=== PATIENT | male | born 1995 | race Caucasian/White ===

== ENCOUNTER 2019-09-19 14:26 | Emergency (ER) | payer OTHER ==
--- NOTE | 2019-09-19 14:46 | EDM.PDOC ---
ED HPI GENERAL MEDICAL PROBLEM - General Chief Complaint: Upper Extremity Injury/Pain Stated Complaint: R THUMB INJURY Time Seen by Provider: 09/19/19 14:34 Source of Information: Reports: Patient, Family History Limitations: Reports: No Limitations - History of Present Illness INITIAL COMMENTS - FREE TEXT/NARRATIVE: patient was making a tackle during a football game just prior to arrival and injured his right thumb. He has pain at the base of the MCP joint area. No numbness or tingling. No gross deformity noted. He was seen by the security trainer and thought that he was better to be evaluated in the department. Patient otherwise has been healthy no other concerns or complaints. Onset: Today, Sudden Duration: Hour(s): Location: Reports: Upper Extremity, Right Quality: Reports: Ache Severity: Moderate Improves with: Reports: Cold Therapy Worsens with: Reports: None Context: Reports: Trauma Associated Symptoms: Reports: No Other Symptoms Right Finger-Thumb Pain Score (Numeric/FACES): 4 - Related Data Allergies Allergy/AdvReac Type Severity Reaction Status Date / Time No Known Allergies Allergy Verified 09/19/19 14:33 [facility] Home Meds: Home Meds . [No Known Home Meds] 09/19/19 [History] Past Medical History - Past Health History Medical/Surgical History: Denies Medical/Surgical History Social & Family History - Tobacco Use Smoking Status *Q: Never Smoker - Recreational Drug Use Recreational Drug Use: No Review of Systems - Review of Systems Review Of Systems: See Below Constitutional: Reports: No Symptoms Musculoskeletal: Reports: Joint Pain (right thumb is examined there is some mild swelling at the MCP of the thumb. I am from the snuffbox pain. There is some laxity of the ulnar collateral ligament with an end point however. Distal cap refill and sensation are normal. Other fingers and hand examination is unremarkable. Wrist exam is negative for radial or ulnar pain.) Skin: Denies: Bruising Neurological: Reports: No Symptoms. Denies: Numbness, Paresthesia, Tingling ED EXAM, GENERAL - Physical Exam Exam: See Below Exam Limited By: No Limitations General Appearance: Alert, WD/WN Peripheral Pulses: 3+: Radial (R) Extremities: Joint Swelling Neurological: Alert, Oriented Psychiatric: Normal Affect Skin Exam: Warm, Dry (right thumb is examined and shows distal cap refill intact , tenderness is noted to the MCP of the thumb, some mild laxity of the ulnar collateral ligament. This tender along the collaterals of the MCP joint of the thumb. No gross deformity. No anatomical snuffbox pain. No wrist pain. Distal cap refill and sensation are normal) Course - Vital Signs Text/Narrative:: examination, x-rays rule out fracture, ulnar collateral load gamekeeper's thumb , dislocation. Last Recorded V/S: Last Vital Signs Temp 97.9 F 09/19/19 14:33 [facility] Pulse 72 09/19/19 14:33 [facility] Resp 15 09/19/19 14:33 [facility] BP 129/85 09/19/19 14:33 [facility] Pulse Ox 98 09/19/19 14:33 MST - Orders/Labs/Meds Orders: Active Orders 24 hr Category Date Time Status Fingers Thumb Rt F5 [CR] Stat Exams 09/19/19 14:48 Taken Wrist Comp Min 3V Rt [CR] Stat Exams 09/19/19 15:21 Taken DME for Discharge [COMM] Stat Oth 09/19/19 15:49 Ordered - Radiology Interpretation Free Text/Narrative:: x-ray of the right thumb does not reveal any obvious fracture dislocation, might be some mild soft tissue swelling. wrist x-ray with 5 views does not reveal an obvious fracture dislocation no signs of any ligamentous injury such as a scapholunate Dis-association - Re-Assessments/Exams Free Text/Narrative Re-Assessment/Exam: 09/19/19 15:35 reviewed the x-ray and reviewed the examination again with the patient and his pain now seems to be more located at the base or proximal and of the first metacarpal. Still no major snuffbox tenderness however. history of the pain in the hand in the past on the same hand and there was another family member that actually had a missed scaphoid fracture that required joint replacement surgery. added a wrist x-ray. Departure - Departure Time of Disposition: 15:54 Disposition: Home, Self-Care 01 Condition: Good Clinical Impression: Sprain of hand, thumb, right - Discharge Information *PRESCRIPTION DRUG MONITORING PROGRAM REVIEWED*: Not Applicable *COPY OF PRESCRIPTION DRUG MONITORING REPORT IN PATIENT NEVIN: Not Applicable Instructions: Cast or Splint Care, Adult, [id number], Finger Sprain, Adult, [id number] Referrals: David Carl MD [Primary Care Provider] - [facility] [Other] Forms: ED Department Discharge Additional Instructions: rest, ice, splint for comfort, Advil or Motrin for pain. Follow up with hand surgery and/or orthopedist that [facility] next week. Radiologist will over read the x-rays from today. Return sooner for increasing pain, numbness, discoloration, worse - My Orders Last 24 Hours: My Active Orders 09/19/19 14:48 Fingers Thumb Rt F5 [CR] Stat 09/19/19 15:21 Wrist Comp Min 3V Rt [CR] Stat 09/19/19 15:49 DME for Discharge [COMM] Stat - Assessment/Plan Last 24 Hours: My Active Orders 09/19/19 14:48 Fingers Thumb Rt F5 [CR] Stat 09/19/19 15:21 Wrist Comp Min 3V Rt [CR] Stat 09/19/19 15:49 DME for Discharge [COMM] Stat
--- NOTE | 2019-09-20 16:01 | CR ---
Right thumb: Three views of the right thumb were obtained. Comparison: No prior thumb study. Joint spaces are preserved. Fracture is identified within the corner base of the 1st metacarpal. Mild displacement is seen. No additional fracture or other bony abnormality is seen. Impression: 1. Fracture within the corner base of the 1st metacarpal. Mild displacement is noted. 2. No additional abnormality is seen on right thumb study. Diagnostic code #3
--- NOTE | 2019-09-20 16:01 | CR ---
Right wrist: Four views of the right wrist are obtained as well as additional navicular view. Comparison: Study correlated with right thumb study of 09/19/19. Fracture is again noted within the corner base of the 1st metacarpal. Joint spaces are preserved within the wrist. No additional fracture or other bony abnormality is seen. Impression: 1. Fracture within the corner base of the 1st metacarpal. 2. No additional abnormality is appreciated on right wrist exam. Diagnostic code #3
== END 2019-09-19 16:05 | disposition home or self-care (01) ==
LOC: JD.ED 14:26
DX: S63.601A Unspecified sprain of right thumb, initial encounter (principal); W21.81XA Striking against or struck by football helmet, initial encounter; Y93.61 Activity, american tackle football
CPT/HCPCS: 29125; 73110-26-RT; 73110-RT; 73140-26-F5; 73140-F5; 99282; 99283-25